=== PATIENT | female | born 1960 | race Caucasian/White ===

== ENCOUNTER 2016-12-21 15:28 | Emergency (ER) | payer OTHER, SELFPAY ==
[~2016-12-21] VITALS: Ht 154.9 cm; Wt 54.5 kg
[2016-12-21] MEDS ORDERED: IBUP-1022 PO (15:38)
[2016-12-21] MEDS ORDERED: ONDANSETRON 4MG/2ML VIAL (J2405) IV ONE (15:45)
[2016-12-21] MEDS ORDERED: MORPHINE 4 MG/ML 1ML SYRINGE IV ONE (15:45)
[2016-12-21] MEDS ORDERED: NORCOTAB PO (16:35)
[2016-12-21] MEDS ORDERED: BACI500O59 EXT (16:35)
[2016-12-21] MEDS ORDERED: IBUP80TA PO (17:11)
[2016-12-21] MEDS ORDERED: PERCOCET 5MG/325MG TAB PO ONE (17:15)
[2016-12-21 17:27] VITALS: BP 153/74
== END 2016-12-21 17:40 | disposition home or self-care (01) ==
LOC: M ED 15:28
DX: T20.10XA Burn of first degree of head, face, and neck, unspecified site, initial encounter (principal); T20.20XA Burn of second degree of head, face, and neck, unspecified site, initial encounter; X12.XXXA Contact with other hot fluids, initial encounter; Y92.018 Other place in single-family (private) house as the place of occurrence of the external cause; Y93.89 Activity, other specified; Y99.8 Other external cause status; Z88.1 Allergy status to other antibiotic agents
CPT/HCPCS: 96374; 96375; 99283; J2405